=== PATIENT | female | born 1985 | race American Indian/Alaskan Native ===

== ENCOUNTER 2018-10-18 13:56 | Emergency (ER) | payer SELFPAY ==
--- NOTE | 2018-10-18 14:03 | Event Note ---
ED Screening Note Date of service: 10/18/18 Time: 14:00 ED Screening Note: This is a 33 y.o. F. that presents to the ER with n/v/d, abdominal pain, and dizziness for 1 day. Nonsmoker LMP 09/29/2018 This initial assessment/diagnostic orders/clinical plan/treatment(s) is/are subject to change based on patients health status, clinical progression and re- assessment by fellow clinical providers in the ED. Further treatment and workup at subsequent clinical providers discretion. Patient/guardian urged not to elope from the ED as their condition may be serious if not clinically assessed and managed. Initial orders include: Labs
[2018-10-18] MEDS ORDERED: ZOFRAN ODT PO ONE (14:04)
[2018-10-18] MEDS ORDERED: ZOFRAN ODT ONE (14:06)
[2018-10-18 14:51] LABS: Bilirubin,Urine NEG (Negative); Blood,Urine NEG (Negative); Color,Urine Yellow (Yellow); Mucus,Urine FEW /HPF; Protein,Urine <15 mg/dL mg/dL (Negative); Urobilinogen,Urine < 2.0 mg/dL (<2.0)
[2018-10-18 15:12] LABS: Basophils % (Auto) 0.8 % (0.0-1.8); Eosinophils # (Auto) 0.1 K/mm3 (0.0-0.4); Eosinophils % (Auto) 1.3 % (0.0-4.3); Hematocrit 36.1 % (30.3-42.9); Hemoglobin 11.5 gm/dl (10.1-14.3); Lymphocytes # (Auto) 0.9 K/mm3 (1.2-5.4); Lymphocytes % (Auto) 13.8 % (13.4-35.0); Mean Corpuscular HGB Conc 32 % (30-34); Mean Corpuscular Volume 76 fl (79-97); Monocytes # (Auto) 0.4 K/mm3 (0.0-0.8); Monocytes % (Auto) 7.1 % (0.0-7.3); Red Blood Count 4.74 M/mm3 (3.65-5.03); Red Cell Distribution Width 15.9 % (13.2-15.2)
[2018-10-18 15:14] LABS: Platelet Count 157 K/mm3 (140-440)
[2018-10-18] MEDS ORDERED: ZOFRAN IV ONE (15:15)
[2018-10-18] MEDS ORDERED: PEPCID IV ONE (15:15)
[2018-10-18] MEDS ORDERED: BENTYL IM ONE (15:15)
[2018-10-18] MEDS ORDERED: NACL 0.9% 1000 ML 1,000 ML IV ONE (15:15)
[2018-10-18 15:25] LABS: Alanine Aminotransferase 9 units/L (7-56); Albumin 4.6 g/dL (3.9-5); BUN/Creatinine Ratio 20; Blood Urea Nitrogen 10 mg/dL (7-17); Calcium 9.5 mg/dL (8.4-10.2); Hemolysis Index 24
--- NOTE | 2018-10-18 16:35 | Emergency Department Report ---
<NICOLAS COLLAZO - Last Filed: 10/18/18 16:35> ED Abdominal Pain HPI - General Chief Complaint: Abdominal Pain Stated Complaint: N/V HEADACHE Time Seen by Provider: 10/18/18 14:00 Source: patient, family Mode of arrival: Wheelchair Limitations: No Limitations - History of Present Illness MD Complaint: abdominal pain -: Gradual, This morning Location: LLQ, RLQ Radiation: none Migration to: no migration Severity: moderate Severity scale (0 -10): 7 Quality: cramping Consistency: constant Improves With: nothing Worsens With: nothing Associated Symptoms: nausea, vomiting, diarrhea, chills, other (dizziness). denies: fever, constipation, dysuria, hematemesis, hematochezia, melena, hematuria, anorexia, syncope - Related Data Previous Rx's Medication Instructions Recorded Last Taken Type Ibuprofen [Motrin] 800 mg PO Q8HR #40 tablet 10/18/18 Unknown Rx Ondansetron [Zofran ODT TAB] 8 mg PO Q12HR #15 tab.rapdis 10/18/18 Unknown Rx oxyCODONE /ACETAMINOPHEN [Percocet 1 tab PO Q6HR PRN #20 tablet 10/18/18 Unknown Rx 5/325] Allergies Allergy/AdvReac Type Severity Reaction Status Date / Time Penicillins Allergy Hives Verified 10/18/18 14:00 ED Review of Systems Comment: All other systems reviewed and negative ED Past Medical Hx - Past Medical History Previous Medical History?: Yes Hx Hypertension: Yes - Surgical History Past Surgical History?: Yes Additional Surgical History: Tubal ligation - Social History Smoking Status: Never Smoker Substance Use Type: None - Medications Home Medications: Home Medications Medication Instructions Recorded Confirmed Last Taken Type Ibuprofen [Motrin] 800 mg PO Q8HR #40 tablet 10/18/18 Unknown Rx Ondansetron [Zofran ODT TAB] 8 mg PO Q12HR #15 tab.rapdis 10/18/18 Unknown Rx oxyCODONE /ACETAMINOPHEN [Percocet 1 tab PO Q6HR PRN #20 tablet 10/18/18 Unknown Rx 5/325] ED Physical Exam - General Limitations: No Limitations General appearance: alert, in no apparent distress - Head Head exam: Present: atraumatic, normocephalic - Eye Eye exam: Present: normal appearance - ENT ENT exam: Present: mucous membranes moist - Neck Neck exam: Present: normal inspection - Respiratory Respiratory exam: Present: normal lung sounds bilaterally. Absent: respiratory distress, wheezes, rales - Cardiovascular Cardiovascular Exam: Present: regular rate, normal rhythm. Absent: systolic murmur, diastolic murmur, rubs, gallop - GI/Abdominal GI/Abdominal exam: Present: soft, tenderness (bilateral lower quadrants), normal bowel sounds. Absent: distended, guarding, rebound, rigid - Extremities Exam Extremities exam: Present: normal inspection - Back Exam Back exam: Present: normal inspection - Neurological Exam Neurological exam: Present: alert, oriented X3 - Psychiatric Psychiatric exam: Present: normal affect, normal mood - Skin Skin exam: Present: warm, dry, intact, normal color. Absent: rash ED Course - Reevaluation(s) Reevaluation #1: 10/18/18 16:35 Patient is a 33-year-old black female presenting with lower abdominal discomfort and nausea vomiting diarrhea. Patient has also had chills and dizziness. Patient will be hydrated to replace when she lost with nausea vomiting diarrhea. Patient was given medications for symptomatic relief. Laboratory studies and CT of abdomen and pelvis to rule out appendicitis, diverticulitis, colitis, pyelonephritis has been ordered. ED Medical Decision Making - Lab Data Result diagrams: 10/18/18 14:26 10/18/18 14:26 Lab Results 10/18/18 10/18/18 10/18/18 Range/Units 14:25 14:26 14:26 WBC 6.3 (4.5-11.0) K/mm3 RBC 4.74 (3.65-5.03) M/mm3 Hgb 11.5 (10.1-14.3) gm/dl Hct 36.1 (30.3-42.9) % MCV 76 L (79-97) fl MCH 24 L (28-32) pg MCHC 32 (30-34) % RDW 15.9 H (13.2-15.2) % Plt Count 157 (140-440) K/mm3 Lymph % (Auto) 13.8 (13.4-35.0) % [place] % (Auto) 7.1 (0.0-7.3) % Eos % (Auto) 1.3 (0.0-4.3) % Baso % (Auto) 0.8 (0.0-1.8) % Lymph # 0.9 L (1.2-5.4) K/mm3 [place] # 0.4 (0.0-0.8) K/mm3 Eos # 0.1 (0.0-0.4) K/mm3 Baso # 0.0 (0.0-0.1) K/mm3 Seg Neutrophils % 77.0 H (40.0-70.0) % Seg Neutrophils # 4.9 (1.8-7.7) K/mm3 Sodium (137-145) mmol/L Potassium (3.6-5.0) mmol/L Chloride (98-107) mmol/L Carbon Dioxide (22-30) mmol/L Anion Gap mmol/L BUN (7-17) mg/dL Creatinine (0.7-1.2) mg/dL Estimated GFR ml/min BUN/Creatinine Ratio % Glucose (65-100) mg/dL Calcium (8.4-10.2) mg/dL Total Bilirubin (0.1-1.2) mg/dL AST (5-40) units/L ALT (7-56) units/L Alkaline Phosphatase (35-129) units/L Total Protein (6.3-8.2) g/dL Albumin (3.9-5) g/dL Albumin/Globulin Ratio % Lipase (13-60) units/L HCG, Qual Negative (Negative) Urine Color Yellow (Yellow) Urine Turbidity Clear (Clear) Urine pH 8.0 H (5.0-7.0) Ur Specific [place] 1.021 (1.003-1.030) Urine Protein <15 mg/dl (Negative) mg/dL Urine Glucose (UA) Neg (Negative) mg/dL Urine Ketones Neg (Negative) mg/dL Urine Blood Neg (Negative) Urine Nitrite Neg (Negative) Urine Bilirubin Neg (Negative) Urine Urobilinogen < 2.0 (<2.0) mg/dL Ur Leukocyte Esterase Neg (Negative) Urine WBC (Auto) 2.0 (0.0-6.0) /HPF Urine RBC (Auto) 3.0 (0.0-6.0) /HPF U Epithel Cells (Auto) 8.0 (0-13.0) /HPF Urine Mucus Few /HPF 10/18/18 Range/Units 14:26 WBC (4.5-11.0) K/mm3 RBC (3.65-5.03) M/mm3 Hgb (10.1-14.3) gm/dl Hct (30.3-42.9) % MCV (79-97) fl MCH (28-32) pg MCHC (30-34) % RDW (13.2-15.2) % Plt Count (140-440) K/mm3 Lymph % (Auto) (13.4-35.0) % [place] % (Auto) (0.0-7.3) % Eos % (Auto) (0.0-4.3) % Baso % (Auto) (0.0-1.8) % Lymph # (1.2-5.4) K/mm3 [place] # (0.0-0.8) K/mm3 Eos # (0.0-0.4) K/mm3 Baso # (0.0-0.1) K/mm3 Seg Neutrophils % (40.0-70.0) % Seg Neutrophils # (1.8-7.7) K/mm3 Sodium 137 (137-145) mmol/L Potassium 4.0 (3.6-5.0) mmol/L Chloride 101.7 (98-107) mmol/L Carbon Dioxide 24 (22-30) mmol/L Anion Gap 15 mmol/L BUN 10 (7-17) mg/dL Creatinine 0.5 L (0.7-1.2) mg/dL Estimated GFR > 60 ml/min BUN/Creatinine Ratio 20 % Glucose 89 (65-100) mg/dL Calcium 9.5 (8.4-10.2) mg/dL Total Bilirubin 0.90 (0.1-1.2) mg/dL AST 16 (5-40) units/L ALT 9 (7-56) units/L Alkaline Phosphatase 59 (35-129) units/L Total Protein 8.3 H (6.3-8.2) g/dL Albumin 4.6 (3.9-5) g/dL Albumin/Globulin Ratio 1.2 % Lipase 15 (13-60) units/L HCG, Qual (Negative) Urine Color (Yellow) Urine Turbidity (Clear) Urine pH (5.0-7.0) Ur Specific [place] (1.003-1.030) Urine Protein (Negative) mg/dL Urine Glucose (UA) (Negative) mg/dL Urine Ketones (Negative) mg/dL Urine Blood (Negative) Urine Nitrite (Negative) Urine Bilirubin (Negative) Urine Urobilinogen (<2.0) mg/dL Ur Leukocyte Esterase (Negative) Urine WBC (Auto) (0.0-6.0) /HPF Urine RBC (Auto) (0.0-6.0) /HPF U Epithel Cells (Auto) (0-13.0) /HPF Urine Mucus /HPF ED Disposition Clinical Impression: Hemorrhagic cyst of left ovary, Pelvic pain Disposition: DC- TO HOME OR SELFCARE Condition: Stable Instructions: Abdominal Pain (ED), Ovarian Cyst (ED) Additional Instructions: Make sure to follow up with the [facility] as you've been referred You have CT scan shows a left 5.8 cm hemorrhagic left ovarian cyst. This could rupture at any time please make sure he stay home , avoid intercourse for the next week or until follow-up with [facility]. Take your pain medication as needed for pain. If you have any worsening symptoms or develop new symptoms please return to ED immediately. Prescriptions: Ibuprofen [Motrin] 800 mg PO Q8HR #40 tablet oxyCODONE /ACETAMINOPHEN [Percocet 5/325] 1 tab PO Q6HR PRN #20 tablet PRN Reason: Pain Ondansetron [Zofran ODT TAB] 8 mg PO Q12HR #15 tab.rapdis Referrals: [facility]UNDSON [facility] [Primary Care Provider] - 3-5 Days [facility] [Provider Group] - 3-5 Days [facility] [Provider Group] - 3-5 Days [facility] [Provider Group] - 3-5 Days Forms: Accompanied Note, Work/School Release Form(ED) <ELVIA MONTES - Last Filed: 10/18/18 18:46> ED Review of Systems ROS: Stated complaint: N/V HEADACHE Other details as noted in HPI ED Course Vital Signs 10/18/18 14:00 Temperature 97.9 F Pulse Rate 83 Respiratory 14 Rate Blood Pressure 160/83 [Right] O2 Sat by Pulse 99 Oximetry - Reevaluation(s) Reevaluation #2: Patient is stable, she is in no acute distress. 10/18/18 18:33 - Consultations Consultation #1: I discussed case with Dr. Marlow [facility] occupational health coordinator who states that patient can sent home on pain medication and follow-up with her [facility] in 2-3 days. 10/18/18 18:32 ED Medical Decision Making - Lab Data Result diagrams: 10/18/18 14:26 10/18/18 14:26 - Radiology Data Radiology results: report reviewed, image reviewed CT ABDOMEN AND PELVIS WITH CONTRAST INDICATION: NVD with abd pain. TECHNIQUE: Axial CT images were obtained through the abdomen and pelvis after 100 cc Omnipaque [address] scans at this location are performed using CT dose reduction for ALARA by means of automated exposure control. COMPARISON: None available. FINDINGS: LOWER CHEST: No significant abnormality. LIVER: No significant abnormality. GALLBLADDER: No significant abnormality. BILE DUCTS: No significant abnormality. PANCREAS: No significant abnormality. SPLEEN: No significant abnormality. ADRENALS: No significant abnormality. RIGHT KIDNEY and URETER: No significant abnormality. LEFT KIDNEY and URETER: No significant abnormality. STOMACH and SMALL BOWEL: No significant abnormality. COLON: No significant abnormality. APPENDIX: No significant abnormality. PERITONEUM: Trace amount of free pelvic fluid No free air. No fluid collection. LYMPH NODES: No significant adenopathy. AORTA and ARTERIES: No significant abnormality. IVC and VEINS: No significant abnormality. URINARY BLADDER: No significant abnormality. REPRODUCTIVE ORGANS: 3.7 x 5.8 cm hemorrhagic left ovarian cyst with hyperdense fluid/fluid level. Small amount of fluid within the endometrial canal. ADDITIONAL FINDINGS: Small fat-containing umbilical hernia SKELETAL SYSTEM: No significant abnormality. IMPRESSION: 1. Hemorrhagic 5.8 cm left ovarian cyst with trace amount of free fluid. 2. Small fat-containing umbilical hernia Signer Name: Elpidio Chaves MD Signed: 10/18/2018 6:21 PM Workstation Name: [id number] Transcribed By: TL Dictated By: Elpidio Chaves MD Electronically Authenticated By: Elpidio Chaves MD Signed Date/Time: 10/18/18 1821 - Medical Decision Making This 33-year-old female presents to ED with pelvic pain. CT scan shows lives hemorrhagic ovarian cyst. Case was discussed with [facility] Dr. Marlow who suggested the patient go home with pain medication and instructions Discussed the patient cyst might rupture causing her a lot of pain. Discussed the patient to avoid intercourse for the next week or to follow-up with [facility]. [facility] referrals given to patient. Patient states to understanding instructions and follow-up. Labs are within normal limits, patient is stable she is in no acute distress Critical care attestation.: If time is entered above; I have spent that time in minutes in the direct care of this critically ill patient, excluding procedure time. ED Disposition Is pt being admited?: No Does the pt Need Aspirin: No Time of Disposition: 18:43
--- NOTE | 2018-10-18 18:25 | Cat Scan Report ---
CT ABDOMEN AND PELVIS WITH CONTRAST INDICATION: NVD with abd pain. TECHNIQUE: Axial CT images were obtained through the abdomen and pelvis after 100 cc Omnipaque [address] scans at this location are performed using CT dose reduction for ALARA by means of automated exposure control. COMPARISON: None available. FINDINGS: LOWER CHEST: No significant abnormality. LIVER: No significant abnormality. GALLBLADDER: No significant abnormality. BILE DUCTS: No significant abnormality. PANCREAS: No significant abnormality. SPLEEN: No significant abnormality. ADRENALS: No significant abnormality. RIGHT KIDNEY and URETER: No significant abnormality. LEFT KIDNEY and URETER: No significant abnormality. STOMACH and SMALL BOWEL: No significant abnormality. COLON: No significant abnormality. APPENDIX: No significant abnormality. PERITONEUM: Trace amount of free pelvic fluid No free air. No fluid collection. LYMPH NODES: No significant adenopathy. AORTA and ARTERIES: No significant abnormality. IVC and VEINS: No significant abnormality. URINARY BLADDER: No significant abnormality. REPRODUCTIVE ORGANS: 3.7 x 5.8 cm hemorrhagic left ovarian cyst with hyperdense fluid/fluid level. Sm all amount of fluid within the endometrial canal. ADDITIONAL FINDINGS: Small fat-containing umbilical hernia SKELETAL SYSTEM: No significant abnormality. IMPRESSION: 1. Hemorrhagic 5.8 cm left ovarian cyst with trace amount of free fluid. 2. Small fat-containing umbilical hernia Signer Name: Elpidio Chaves MD Signed: 10/18/2018 6:21 PM Workstation Name: [id number]
[2018-10-18 19:15] VITALS: BP 129/71
== END 2018-10-18 19:13 | disposition home or self-care (01) ==
LOC: ED 13:56
DX: N83.02 Follicular cyst of left ovary (principal); I10 Essential (primary) hypertension; Z98.51 Tubal ligation status; Z79.899 Other long term (current) drug therapy; Z88.0 Allergy status to penicillin
CPT/HCPCS: 36415; 74177; 80053; 81001; 83690; 84703; 85025; 96361; 96372; 96374; 96375; 99284; J0500; J2405; J7030; Q9967; Q0162

== ENCOUNTER 2019-06-17 17:45 | Emergency (ER) | payer SELFPAY ==
[2019-06-17 18:03] VITALS: BP 141/81
--- NOTE | 2019-06-17 18:12 | Emergency Department Report ---
Chief Complaint: Dental/Oral Stated Complaint: MUSCLE SPASM/TOOTHACHE Time Seen by Provider: 06/17/19 18:08 - HPI History of Present Illness: 34 y/o female comes in for left lower tooth pain in he third molar times 1 day. Reports she has been taking Tylenol for pain which is not helping. - Exam Vital Signs: Vital Signs 06/17/19 17:58 Temperature 98.3 F Pulse Rate 80 Respiratory 18 Rate Blood Pressure 141/81 O2 Sat by Pulse 100 Oximetry MSE screening note: Focused history and physical exam performed. Due to findings the following was ordered: 34 y/o female comes in for left lower tooth pain in he third molar times 1 day. Reports she has been taking Tylenol for pain which is not helping. Recommend to take Ibuprofen or Motrin for pain. Follow up with a dentist. Dental handout given. ED Disposition for MSE Disposition: Z-07 MED SCREENING EXAM-LEFT Is pt being admited?: No Does the pt Need Aspirin: No Condition: Stable Additional Instructions: Recommend to take Ibuprofen or Motrin for pain. Follow up with a dentist. Dental handout given. Forms: Work/School Release Form(ED)
== END 2019-06-17 18:34 | disposition left against medical advice (07) ==
LOC: ED 17:45
DX: K08.89 Other specified disorders of teeth and supporting structures (principal); Z88.0 Allergy status to penicillin
CPT/HCPCS: 99282

== ENCOUNTER 2020-01-27 03:09 | Emergency (ER) | payer OTHER ==
[2020-01-27 04:39] LABS: Basophils % (Auto) 0.5 % (0.0-1.8); Eosinophils # (Auto) 0.2 K/mm3 (0.0-0.4); Eosinophils % (Auto) 3.7 % (0.0-4.3); Hematocrit 36.1 % (30.3-42.9); Hemoglobin 11.8 gm/dl (10.1-14.3); Lymphocytes # (Auto) 1.4 K/mm3 (1.2-5.4); Lymphocytes % (Auto) 32.7 % (13.4-35.0); Mean Corpuscular HGB Conc 33 % (30-34); Mean Corpuscular Volume 79 fl (79-97); Monocytes # (Auto) 0.5 K/mm3 (0.0-0.8); Monocytes % (Auto) 12.1 % (0.0-7.3); Platelet Count 151 K/mm3 (140-440); Red Blood Count 4.55 M/mm3 (3.65-5.03); Red Cell Distribution Width 15.1 % (13.2-15.2)
[2020-01-27 04:51] LABS: Alanine Aminotransferase 7 units/L (7-56); Albumin 4.3 g/dL (3.9-5); Blood Urea Nitrogen 13 mg/dL (7-17); Calcium 9.1 mg/dL (8.4-10.2); Hemolysis Index 4
[2020-01-27 04:53] LABS: BUN/Creatinine Ratio 19
[2020-01-27] MEDS ORDERED: oxyCODONE /ACETAMINOPHEN 5-325MG TAB PO ONE (07:48)
[2020-01-27] MEDS ORDERED: ONDANSETRON 4 MG ODT TAB PO ONE (07:48)
--- NOTE | 2020-01-27 07:59 | Emergency Department Report ---
ED Abdominal Pain HPI - General Chief Complaint: Abdominal Pain Stated Complaint: UPPER ABD PAIN Time Seen by Provider: 01/27/20 07:26 Source: patient Mode of arrival: Ambulatory Limitations: No Limitations - History of Present Illness Initial Comments: Patient is a 34-year-old female presents emergency room with complaints of periumbilical abdominal pain that began 2 days ago. Patient states that she believes she has a hernia. She denies ever having this pain in the past. She denies any nausea, vomiting, diarrhea, fever, dysuria, urinary frequency, vaginal discharge or irritation. She states that she had a normal bowel movement yesterday. She states that she is able to tolerate p.o. intake. She denies any history of any abdominal surgeries. No past medical history. Allergy to penicillin. Last menstrual cycle January 05. Severity scale (0 -10): 7 - Related Data Previous Rx's Medication Instructions Recorded Last Taken Type Ibuprofen [Motrin] 800 mg PO Q8HR #40 tablet 10/18/18 Unknown Rx Ondansetron [Zofran ODT TAB] 8 mg PO Q12HR #15 tab.rapdis 10/18/18 Unknown Rx oxyCODONE /ACETAMINOPHEN [Percocet 1 tab PO Q6HR PRN #20 tablet 10/18/18 Unknown Rx 5/325] Ondansetron [Zofran Odt] 4 mg PO Q8HR PRN #7 tab.rapdis 01/27/20 Unknown Rx traMADoL [Ultram 50 MG tab] 50 mg PO Q6HR PRN #10 tablet 01/27/20 Unknown Rx Allergies Allergy/AdvReac Type Severity Reaction Status Date / Time Penicillins Allergy Hives Verified 06/17/19 17:58 ED Review of Systems ROS: Stated complaint: UPPER ABD PAIN Other details as noted in HPI Comment: All other systems reviewed and negative ED Past Medical Hx - Past Medical History Hx Hypertension: Yes - Surgical History Additional Surgical History: Tubal ligation - Social History Smoking Status: Never Smoker Substance Use Type: None - Medications Home Medications: Home Medications Medication Instructions Recorded Confirmed Last Taken Type Ibuprofen [Motrin] 800 mg PO Q8HR #40 tablet 10/18/18 Unknown Rx Ondansetron [Zofran ODT TAB] 8 mg PO Q12HR #15 tab.rapdis 10/18/18 Unknown Rx oxyCODONE /ACETAMINOPHEN [Percocet 1 tab PO Q6HR PRN #20 tablet 10/18/18 Unknown Rx 5/325] Ondansetron [Zofran Odt] 4 mg PO Q8HR PRN #7 tab.rapdis 01/27/20 Unknown Rx traMADoL [Ultram 50 MG tab] 50 mg PO Q6HR PRN #10 tablet 01/27/20 Unknown Rx ED Physical Exam - General Limitations: No Limitations General appearance: alert, in no apparent distress - Head Head exam: Present: atraumatic, normocephalic - Eye Eye exam: Present: normal appearance - ENT ENT exam: Present: mucous membranes moist - Respiratory Respiratory exam: Present: normal lung sounds bilaterally. Absent: respiratory distress, wheezes, rales, rhonchi, stridor, chest wall tenderness, accessory muscle use, decreased breath sounds, prolonged expiratory - Cardiovascular Cardiovascular Exam: Present: regular rate, normal rhythm, systolic murmur - GI/Abdominal GI/Abdominal exam: Present: soft, tenderness (periumbilical), normal bowel sounds, hernia (small 2 cm periumbilical hernia with ttp, easily reducible). Absent: distended, guarding, rebound, rigid - Neurological Exam Neurological exam: Present: alert, oriented X3 - Psychiatric Psychiatric exam: Present: normal affect, normal mood - Skin Skin exam: Present: warm, dry, intact ED Course Vital Signs 01/27/20 08:04 Temperature 98.4 F Pulse Rate 69 Respiratory 16 Rate Blood Pressure 118/74 [Left] O2 Sat by Pulse 99 Oximetry ED Medical Decision Making - Lab Data Result diagrams: 01/27/20 04:11 01/27/20 04:11 Lab Results 01/27/20 01/27/20 01/27/20 Range/Units 04:11 04:11 04:11 WBC 4.4 L (4.5-11.0) K/mm3 RBC 4.55 (3.65-5.03) M/mm3 Hgb 11.8 (10.1-14.3) gm/dl Hct 36.1 (30.3-42.9) % MCV 79 (79-97) fl MCH 26 L (28-32) pg MCHC 33 (30-34) % RDW 15.1 (13.2-15.2) % Plt Count 151 (140-440) K/mm3 Lymph % (Auto) 32.7 (13.4-35.0) % [place] % (Auto) 12.1 H (0.0-7.3) % Eos % (Auto) 3.7 (0.0-4.3) % Baso % (Auto) 0.5 (0.0-1.8) % Lymph # (Auto) 1.4 (1.2-5.4) K/mm3 [place] # (Auto) 0.5 (0.0-0.8) K/mm3 Eos # (Auto) 0.2 (0.0-0.4) K/mm3 Baso # (Auto) 0.0 (0.0-0.1) K/mm3 Seg Neutrophils % 51.0 (40.0-70.0) % Seg Neutrophils # 2.2 (1.8-7.7) K/mm3 Sodium 138 (137-145) mmol/L Potassium 4.1 (3.6-5.0) mmol/L Chloride 107.6 H (98-107) mmol/L Carbon Dioxide 22 (22-30) mmol/L Anion Gap 13 mmol/L BUN 13 (7-17) mg/dL Creatinine 0.7 (0.6-1.2) mg/dL Estimated GFR > 60 ml/min BUN/Creatinine Ratio 19 % Glucose 91 (65-100) mg/dL Calcium 9.1 (8.4-10.2) mg/dL Total Bilirubin 0.40 (0.1-1.2) mg/dL AST 13 (5-40) units/L ALT 7 (7-56) units/L Alkaline Phosphatase 63 (35-129) units/L Total Protein 7.5 (6.3-8.2) g/dL Albumin 4.3 (3.9-5) g/dL Albumin/Globulin Ratio 1.3 % HCG, Qual Negative (Negative) Urine Color (Yellow) Urine Turbidity (Clear) Urine pH (5.0-7.0) Ur Specific [place] (1.003-1.030) Urine Protein (Negative) mg/dL Urine Glucose (UA) (Negative) mg/dL Urine Ketones (Negative) mg/dL Urine Blood (Negative) Urine Nitrite (Negative) Urine Bilirubin (Negative) Urine Urobilinogen (<2.0) mg/dL Ur Leukocyte Esterase (Negative) Urine WBC (Auto) (0.0-6.0) /HPF Urine RBC (Auto) (0.0-6.0) /HPF U Epithel Cells (Auto) (0-13.0) /HPF Hyaline Casts /LPF Urine Mucus /HPF 01/27/20 Range/Units 07:57 WBC (4.5-11.0) K/mm3 RBC (3.65-5.03) M/mm3 Hgb (10.1-14.3) gm/dl Hct (30.3-42.9) % MCV (79-97) fl MCH (28-32) pg MCHC (30-34) % RDW (13.2-15.2) % Plt Count (140-440) K/mm3 Lymph % (Auto) (13.4-35.0) % [place] % (Auto) (0.0-7.3) % Eos % (Auto) (0.0-4.3) % Baso % (Auto) (0.0-1.8) % Lymph # (Auto) (1.2-5.4) K/mm3 [place] # (Auto) (0.0-0.8) K/mm3 Eos # (Auto) (0.0-0.4) K/mm3 Baso # (Auto) (0.0-0.1) K/mm3 Seg Neutrophils % (40.0-70.0) % Seg Neutrophils # (1.8-7.7) K/mm3 Sodium (137-145) mmol/L Potassium (3.6-5.0) mmol/L Chloride (98-107) mmol/L Carbon Dioxide (22-30) mmol/L Anion Gap mmol/L BUN (7-17) mg/dL Creatinine (0.6-1.2) mg/dL Estimated GFR ml/min BUN/Creatinine Ratio % Glucose (65-100) mg/dL Calcium (8.4-10.2) mg/dL Total Bilirubin (0.1-1.2) mg/dL AST (5-40) units/L ALT (7-56) units/L Alkaline Phosphatase (35-129) units/L Total Protein (6.3-8.2) g/dL Albumin (3.9-5) g/dL Albumin/Globulin Ratio % HCG, Qual (Negative) Urine Color Yellow (Yellow) Urine Turbidity Clear (Clear) Urine pH 5.0 (5.0-7.0) Ur Specific [place] 1.028 (1.003-1.030) Urine Protein <15 mg/dl (Negative) mg/dL Urine Glucose (UA) Neg (Negative) mg/dL Urine Ketones Neg (Negative) mg/dL Urine Blood Neg (Negative) Urine Nitrite Neg (Negative) Urine Bilirubin Neg (Negative) Urine Urobilinogen < 2.0 (<2.0) mg/dL Ur Leukocyte Esterase Neg (Negative) Urine WBC (Auto) 1.0 (0.0-6.0) /HPF Urine RBC (Auto) 2.0 (0.0-6.0) /HPF U Epithel Cells (Auto) 4.0 (0-13.0) /HPF Hyaline Casts 1 /LPF Urine Mucus Few /HPF - Medical Decision Making Patient is a 34-year-old female presents emergency room with complaints of periumbilical abdominal pain that began 2 days ago. Patient states that she bel ieves she has a hernia. She denies ever having this pain in the past. She denies any nausea, vomiting, diarrhea, fever, dysuria, urinary frequency, vaginal discharge or irritation. She states that she had a normal bowel movement yesterday. She states that she is able to tolerate p.o. intake. She denies any history of any abdominal surgeries. No past medical history. Allergy to penicillin. Last menstrual cycle January 05. vitals are normal. on exam: small 2 cm periumbilical hernia with ttp, easily reducible, no guarding, no rebound, no rigidity, normal bowel sounds, no peritoneal signs. Patient does have a small periumbilical hernia, it was able to easily be manually reduced. Labs are normal. hCG is negative. UA is within normal limits. Patient was given pain medication while in the emergency department as she did not drive and her symptoms improved. Discussed all findings with patient and the importance of general surgery follow-up. Discussed very strict return precautions with patient. Patient given prescription for Zofran and tramadol. Advised patient Please take medication as prescribed as needed. Do not drive or operate machinery while taking pain medication. Increase your water intake. Follow-up with a general surgeon. Follow-up with your primary care doctor. Return to emergency room immediately for any new or worsening symptoms including but not limited to worsening pain, unable to have a bowel movement or pass gas, unable to tolerate by mouth intake, if hernia is not able to be pushed back in, etc. - Differential Diagnosis Hernia, obstruction, GERD, PUD, UTI, gastritis, pancreatitis, cholecystitis Critical care attestation.: If time is entered above; I have spent that time in minutes in the direct care of this critically ill patient, excluding procedure time. ED Disposition Clinical Impression: Abdominal pain Qualifiers: Abdominal location: periumbilical Qualified Code(s): R10.33 - Periumbilical pain Umbilical hernia Qualifiers: Obstruction and gangrene presence: without obstruction or gangrene Qualified Code(s): K42.9 - Umbilical hernia without obstruction or gangrene Disposition: TO HOME OR SELFCARE Is pt being admited?: No Does the pt Need Aspirin: No Condition: Stable Instructions: Umbilical Hernia, Adult, Abdominal Pain (ED) Additional Instructions: Please take medication as prescribed as needed. Do not drive or operate machinery while taking pain medication. Increase your water intake. Follow-up with a general surgeon. Follow-up with your primary care doctor. Return to emergency room immediately for any new or worsening symptoms including but not limited to worsening pain, unable to have a bowel movement or pass gas, unable to tolerate by mouth intake, if hernia is not able to be pushed back in, etc. Prescriptions: traMADoL [Ultram 50 MG tab] 50 mg PO Q6HR PRN #10 tablet PRN Reason: Pain , Severe (7-10) Ondansetron [Zofran Odt] 4 mg PO Q8HR PRN #7 tab.rapdis PRN Reason: Nausea And Vomiting Referrals: REZA ROCK MD [Staff Physician] - 2-3 Days NICOLETTE EATON MD [Staff Physician] - 2-3 Days [facility] [Provider Group] - 2-3 Days Forms: Work/School Release Form(ED) Time of Disposition: 08:38 Print Language: TURKISH
[2020-01-27 08:06] VITALS: BP 118/74
[2020-01-27 08:07] LABS: Bilirubin,Urine NEG (Negative); Blood,Urine NEG (Negative); Color,Urine Yellow (Yellow); Hyaline Casts,Urine 1 /LPF; Mucus,Urine FEW /HPF; Protein,Urine <15 mg/dL mg/dL (Negative); Urobilinogen,Urine < 2.0 mg/dL (<2.0)
== END 2020-01-27 08:47 | disposition home or self-care (01) ==
LOC: ED 03:09
DX: K42.9 Umbilical hernia without obstruction or gangrene (principal); R10.33 Periumbilical pain; I10 Essential (primary) hypertension; Z79.899 Other long term (current) drug therapy; Z88.0 Allergy status to penicillin; Z98.51 Tubal ligation status
CPT/HCPCS: 36415; 80053; 81001; 84703; 85025; 99283; Q0162

== ENCOUNTER 2020-02-24 10:43 | Day surgery (SDC) | payer OTHER ==
[~2020-02-24 10:43] MED LIST: ACETAMINOPHEN 500 MG TAB PO SCH; CELECOXIB 200 MG CAP PO NR; GABAPENTIN 300 MG CAP PO NR; LACTATED RINGERS 1,000 ML IV SCH; MIDAZOLAM 2 MG/2 ML INJ IV NR
--- NOTE | 2020-02-24 11:22 | Anesthesia Consultation ---
Anesthesia Consult and Med Hx Date of service: 02/24/20 - Airway Anesthetic Teeth Evaluation: Good ROM Head & Neck: Adequate Mental/Hyoid Distance: Adequate Mallampati Class: Class II Intubation Access Assessment: Probably Good - Pulmonary Exam CTA: Yes - Cardiac Exam Cardiac Exam: RRR - Pre-Operative Health Status ASA Pre-Surgery Classification: ASA2 Proposed Anesthetic Plan: General - Pulmonary Hx Smoking: No Hx Respiratory Symptoms: No Hx Sleep Apnea: No (SNORES- LOW WADE RISK) - Cardiovascular System Hx Hypertension: Yes (no Rx currently) - Central Nervous System Hx Psychiatric Problems: Yes (depression) - Endocrine Hx Renal Disease: No Hx Liver Disease: No Hx Insulin Dependent Diabetes: No Hx Non-Insulin Dependent Diabetes: No Hx Thyroid Disease: No - Other Systems Hx Obesity: No - Additional Comments Anesthesia Medical History Comments: No hx anesthetic complications.
--- NOTE | 2020-02-24 11:22 | Anesthesia Day of Surgery ---
Anesthesia Day of Surgery - Day of Surgery Patient Examined: Yes Patient H&P Reviewed: Yes Patient is NPO: Yes
[2020-02-24] MEDS ORDERED: ONDANSETRON 4 MG/2 ML INJ IV PRN (11:30)
[2020-02-24] MEDS ORDERED: VANCOMYCIN/NS 1 GM/250 ML 1 GM/250 ML BAG IV NR (11:37)
[2020-02-24] MEDS ORDERED: HEPARIN 5,000 UNIT/1 ML VIAL SUB-Q NR (11:45)
[2020-02-24] MEDS ORDERED: ROCURONIUM 50 MG/5 ML INJ IV ONE (11:57)
[2020-02-24] MEDS ORDERED: LIDOCAINE MPF (2%) 20 MG/1 ML VIAL 5 ML ONE (11:57)
[2020-02-24] MEDS ORDERED: fentaNYL 100 MCG/2 ML INJ ONE (11:58)
[2020-02-24] MEDS ORDERED: propofoL 200 MG/20 ML VIAL IV ONE (11:58)
[2020-02-24] MEDS ORDERED: BUPIVACAINE-EPINEPHRINE/PF 0.5%-1:200,000 (30 ML) VIAL INFILTRATI ONE (12:23)
[2020-02-24] MEDS ORDERED: BUPIVACAINE-EPINEPHRINE/PF 0.5%-1:200,000 (10 ML) VIAL INFILTRATI ONE ×2 (13:06)
[2020-02-24] MEDS ORDERED: SODIUM CHLORIDE 0.9% IRR 1,500 ML BOTTLE IR ONE (13:06)
[2020-02-24] MEDS ORDERED: dexAMETHasone 20 MG/5 ML VIAL ONE (13:18)
[2020-02-24] MEDS ORDERED: ONDANSETRON 4 MG/2 ML INJ ONE (13:18)
[2020-02-24] MEDS ORDERED: KETOROLAC 30 MG/1 ML INJ ONE (13:18)
[2020-02-24] MEDS ORDERED: GLYCOPYRROLATE 0.4 MG/2 ML INJ ONE (13:26)
[2020-02-24] MEDS ORDERED: NEOSTIGMINE 10MG/10 ML INJ MDV ONE (13:26)
[2020-02-24] MEDS ORDERED: SUCCINYLCHOLINE CHLORIDE 200 MG/10 ML INJ MDV ONE (13:27)
[2020-02-24] MEDS: HYDROmorphone 1 MG/1 ML INJ IV PRN ×2 (13:58→14:08)
[2020-02-24] MEDS ORDERED: oxyCODONE /ACETAMINOPHEN 5-325MG TAB PO PRN (14:00)
--- NOTE | 2020-02-24 14:31 | Procedure Note ---
Date of procedure: 02/24/20 Pre-op diagnosis: Incarcerated supra-umbilical hernia Post-op diagnosis: same Procedure: Open repair of incarcerated ventral hernia with mesh Description of procedure: Pt was placed supine on the OR table. GETA was administered. Abdomen was prepped and draped. A midline periumbilical incision was made. The epigastric hernia sac was immediately identified and was dissected down to it's fascial margins. The sac was entered and was found to contain incarcerated omentum. The omentum was freed from the hernia sac and was returned to the peritoneal cavity. The hernia sac was excised. A medium piece of Ventralex mesh was positioned intra-peritoneally. The mesh was secured to the fascia and the defect simultaneously closed with interrupted sutures of 2-0 Ethibond. Wound was irrigated with warm saline. Skin was approximated with a running, subcuticular suture of 4-0 Monocryl. Skin glue was applied to the incision. Pt tolerated the procedure well. Pt was extubated in the OR and was taken to PACU in stable condition. Anesthesia: GETA Surgeon: REZA ROCK Estimated blood loss: minimal Pathology: none Specimen disposition: discarded Condition: stable Disposition: PACU
[2020-02-24 14:38] VITALS: BP 126/78
--- NOTE | 2020-02-24 14:59 | Post Anesthesia Evaluation ---
- Post Anesthesia Evaluation Patient Participated: Yes Airway Patent: Yes Stable Respiratory Function: Yes Nausea/Vomiting: No Temp > 96.8F: Yes Pain Manageable: Yes Adequeate Hydration: Yes Anesthesia Complications: No
== END 2020-02-24 15:10 | disposition home or self-care (01) ==
LOC: OR 10:43
PROVIDERS: ATTEND Surgery
DX: K43.6 Other and unspecified ventral hernia with obstruction, without gangrene (principal); I10 Essential (primary) hypertension; F32.9 Major depressive disorder, single episode, unspecified; Z88.0 Allergy status to penicillin; Z79.899 Other long term (current) drug therapy; Z98.51 Tubal ligation status; Z87.442 Personal history of urinary calculi; Z87.440 Personal history of urinary (tract) infections; Z98.890 Other specified postprocedural states
CPT/HCPCS: 49561; 49568; 81025; C1781; J0330; J1100; J1170; J1644; J1885; J2405; J2704; J2710; J3010; J3370; J7120